=== PATIENT | female | born 1995 | race Two or more races ===

== ENCOUNTER 2021-09-08 15:21 | Emergency (ER) | payer OTHER ==
[~2021-09-08] VITALS: Ht 167.6 cm; Wt 97.5 kg
[2021-09-08] MEDS ORDERED: NEXIUM40 M1 (16:08)
[2021-09-08] MEDS ORDERED: EFFEXOR XR150 MG (16:10)
[2021-09-08] MEDS ORDERED: NASAL MIST126 ML (16:10)
[2021-09-08] MEDS ORDERED: ZYRTEC10 M3 (16:10)
== END 2021-09-08 17:52 | disposition home or self-care (01) ==
LOC: ER 15:21
DX: J06.9 Acute upper respiratory infection, unspecified (principal); Z20.822 Contact with and (suspected) exposure to COVID-19

== ENCOUNTER 2021-10-15 00:50 | Emergency (ER) | payer OTHER ==
[~2021-10-15] VITALS: Ht 167.6 cm; Wt 97.5 kg
[~2021-10-15 00:50] MED LIST: EFFEXOR XR150 MG; NASAL MIST126 ML; NEXIUM40 M1; ZYRTEC10 M3
[2021-10-15] MEDS ORDERED: PREVACID30 M1 PO (01:04)
[2021-10-15] MEDS ORDERED: WELLBUTRIN XL150 M1 PO (01:04)
[2021-10-15] MEDS ORDERED: OCELLA 3 MG-0.1 EACH PO (01:04)
[2021-10-15] MEDS ORDERED: BENADRYL25 MG PO (05:18)
== END 2021-10-15 05:26 ==
LOC: ER 00:50
DX: G25.2 Other specified forms of tremor (principal); T43.295A Adverse effect of other antidepressants, initial encounter; F41.9 Anxiety disorder, unspecified